=== PATIENT | female | born 2000 | race African-American/Black ===

== ENCOUNTER 2022-05-03 12:30 | Emergency (ER) | payer MEDICAID, SELFPAY ==
--- NOTE | ~2022-05-03 | US_ITS ---
EXAMINATION: US OB <=14 wk fetus w TV DATE: 05/03/2022 14:51 INDICATION: Vaginal bleeding in . TECHNIQUE: Real-time transabdominal and transvaginal pelvic ultrasound was performed. COMPARISON: None. FINDINGS: TRANSABDOMINAL ULTRASOUND: The uterus measures 11.2 x 6.8 x 7.6 cm. TRANSVAGINAL ULTRASOUND: There is an intrauterine gestational sac. The crown rump length measur es 6 mm, which correlates with an estimated gestational age of 6 weeks and 3 day(s) (+/-) 4 day(s). F etal heart motion is identified measuring 89 beats per minute (bpm) by M-mode Doppler. The right ovar y measures 4.2 x 2.0 x 2.4 cm. The left ovary measures 4.2 x 2.1 x 2.5 cm. There is no free fluid in the pelvis. IMPRESSION: 1. Single living intrauterine gestation with estimated date of delivery of 12/24/2022. Reviewed, dictated and finalized at location A.
[2022-05-03 12:37] VITALS: BP 137/81; PULSE 112; RESP 18; TEMP 36.8; O2SAT 100
[2022-05-03 13:32] LABS: Basophils Percent Auto 0.2 % (0.2-1.2); Eosinophils Absolute Auto 0.1 K/mm3 (0-0.3); Eosinophils Percent Auto 1.9 % (0-4.4); Hematocrit 38.1 % (37.0-47.0); Hemoglobin 11.7 g/dL (12.0-15.0); Immature Granulocyte Absolute 0.02 K/mm3 (0.00-0.031); Immature Granulocyte Percent A 0.4 % (0-0.5); Immature Platelet Fraction Pct 8.9 % (0.9-11.2); Lymphocytes Absolute Auto 1.69 K/mm3 (0.9-3.2); Lymphocytes Percent Auto 29.9 % (18.3-44.2); Mean Corpuscular HGB Conc 30.7 g/dl (32-36); Mean Corpuscular Hemoglobin 22.3 pg (26-34); Mean Corpuscular Volume 72.6 fl (80-100); Mean Platelet Volume 12.5 fl (7.4-10.4); Monocytes Absolute Auto 0.4 K/mm3 (0.1-0.6); Monocytes Percent Auto 7.1 % (2.6-8.5); Neutrophils Absolute Auto 3.4 K/mm3 (1.3-6.7); Neutrophils Percent Auto 60.5 % (45.5-73.1); Platelet Count Result 201 k/mm3 (150-375); Red Blood Count 5.25 M/mm3 (4.2-5.4); Red Cell Distribution Width 14.8 % (11.5-14.5); White Blood Count 5.7 K/mm3 (4.5-10.0)
[2022-05-03 13:41] LABS: Anion Gap 6 mmol/L (8-16); Blood Urea Nitrogen 8 mg/dL (7-17); Calcium 8.6 mg/dL (8.4-10.2); Carbon Dioxide 24 mmol/L (22-30); Chloride 107 mmol/L (98-107); Estimated CRCL calculation 161 ml/min; Estimated Glomerular Filt Rate > 60; Glucose 97 mg/dL (65-110); Hypochromasia 1+ (NORMAL); Microcytosis 1+ (NORMAL); Platelet Estimate Adequate (Adequate); Potassium 3.7 mmol/L (3.4-5.0); Schistocytes None Seen (NORMAL); Sodium 137 mmol/L (137-145)
--- NOTE | 2022-05-03 14:55 | PC.NURSE ---
attempted to obtain urine sample at this time. Patient states that prior to ultrasound, systems testing laboratory technician had patient void in imaging department. Patient is unable to void at this time.
--- NOTE | 2022-05-03 14:59 | ED.GENADULT ---
HPI - General Adult General Chief complaint: Vaginal Bleeding Stated complaint: may be having a miscarriage bleeding, 8-9 weeks Time Seen by Provider: 05/03/22 13:08 History of Present Illness HPI narrative: Patient is a 21-year-old female who presents ER with vaginal bleeding. Began 1 hour prior to arrival. Reports no clots but felt like it was heavy. LMP 03/07/2022. No abdominal pain or cramping. No fevers or chills or sweats. No loss consciousness. Patient recently moved here from [place] and [place] living in [place] She has not yet established care. . Related Data Allergies Allergy/AdvReac Type Severity Reaction Status Date / Time No Known Allergies Allergy Verified 05/03/22 12:39 Review of Systems Review of Systems: All systems reviewed & are unremarkable except as noted in HPI and below Constitutional: Constitutional: Denies chills, Denies fatigue and Denies fever(s) ENT: Denies nasal congestion and Denies sore throat Cardiovascular: Cardiovascular: Denies chest pain, Denies rapid heart rate and Denies radiating jaw, neck or arm pain Respiratory: Respiratory: Denies cough and Denies dyspnea Gastrointestinal: Gastrointestinal: Denies abdominal pain, Denies nausea and Denies vomiting Genitourinary: Genitourinary: Reports abnormal vaginal bleeding, Denies dysuria, Denies pelvic pain and Denies vaginal discharge PMFSH Past Medical History Medical History (Updated 05/03/22 @ 15:36 by Clement Mullins MD) Healthy female adult Surgical History Surgical History (Updated 05/03/22 @ 14:59 by Clement Mullins MD) History of section Social History Social History (Updated 05/03/22 @ 14:59 by Clement Mullins MD) Smoking status: Never smoker Exam Narrative: GENERAL: Well-appearing, well-nourished, and in no acute distress. HEAD: Normocephalic, atraumatic. ENT: Mucous membranes moist. NECK: Supple. CHEST: Clear to auscultation. No respiratory distress. HEART: Regular rate and rhythm. Normal peripheral pulses. ABDOMEN: Soft, nontender, nondistended. EXTREMITIES: Normal range of motion. No edema. SKIN: Warm, dry, no rash. NEURO: Alert and oriented x3. PSYCH: Normal mood and affect. Course Course Emergency Course: Patient resting comfortably. Informed of results. Confirmed IUP. No need for RhoGAM as blood type is be positive. We will give OB follow-up here but [place] is going to be a [place] Medicaid patient. Patient's urinalysis was pending but patient does not wish to have any urine tested as she is not having dysuria. Vital Signs Vital signs: Vital Signs Temperature 98.3 F 05/03/22 12:37 Pulse Rate 112 H 05/03/22 12:37 Respiratory Rate 18 05/03/22 12:37 Blood Pressure 137/81 05/03/22 12:37 Pulse Oximetry 100 05/03/22 12:37 Oxygen Delivery Room Air 05/03/22 12:37 Temperature 98.3 F 05/03/22 12:37 Pulse Rate 112 H 05/03/22 12:37 Respiratory Rate 18 05/03/22 12:37 Blood Pressure 137/81 05/03/22 12:37 Pulse Oximetry 100 05/03/22 12:37 Oxygen Delivery Room Air 05/03/22 12:37 Medical Decision Making Vital Signs Vital Signs: Vital Signs Temperature 98.3 F 05/03/22 12:37 Pulse Rate 112 H 05/03/22 12:37 Respiratory Rate 18 05/03/22 12:37 Blood Pressure 137/81 05/03/22 12:37 Pulse Oximetry 100 05/03/22 12:37 Oxygen Delivery Room Air 05/03/22 12:37 Temperature 98.3 F 05/03/22 12:37 Pulse Rate 112 H 05/03/22 12:37 Respiratory Rate 18 05/03/22 12:37 Blood Pressure 137/81 05/03/22 12:37 Pulse Oximetry 100 05/03/22 12:37 Oxygen Delivery Room Air 05/03/22 12:37 Lab Data 05/03/22 13:23 05/03/22 13:23 Labs: Lab Results 05/03/22 05/03/22 05/03/22 Range/Units 13:23 13:23 13:23 WBC 5.7 (4.5-10.0) K/mm3 RBC 5.25 (4.2-5.4) M/mm3 Hgb 1
[2022-05-03 15:47] VITALS: BP 108/54; PULSE 90; RESP 18
== END 2022-05-03 15:48 | disposition home or self-care (01) ==
PROVIDERS: Physician Assistant; Emergency Provider Emergency Medicine
DX: O20.0 Threatened abortion (principal); Z3A.08 8 weeks gestation of pregnancy
CPT/HCPCS: 36415; 76801; 76817; 80048; 84702; 85025; 85055; 85461; 86850; 86900; 86901; 99284